=== PATIENT | female | born 1995 | race African-American/Black ===

== ENCOUNTER 2023-10-19 04:28 | Day surgery (SDC) | payer BC ==
[2023-10-17 11:52] VITALS: BMI 20.1
[2023-10-19 08:37] VITALS: RESP 18; TEMP 98
[2023-10-19 09:14] VITALS: BP 111/74; PULSE 66
== END 2023-10-19 09:16 | disposition home or self-care (01) ==
LOC: JASU-ENDO 04:28
PROVIDERS: ATTEND Student in an Organized Health Care Education/Training Program
PROC: 0DB78ZX Excision of Stomach, Pylorus, Via Natural or Artificial Opening Endoscopic, Diagnostic (ICD-10-PCS; 2023-10-19)
PROC: 0DB68ZX Excision of Stomach, Via Natural or Artificial Opening Endoscopic, Diagnostic (ICD-10-PCS; 2023-10-19)
PROC: 0DB28ZX Excision of Middle Esophagus, Via Natural or Artificial Opening Endoscopic, Diagnostic (ICD-10-PCS; 2023-10-19)
PROC: 0DB38ZX Excision of Lower Esophagus, Via Natural or Artificial Opening Endoscopic, Diagnostic (ICD-10-PCS; principal; 2023-10-19 08:00)
DX: K29.50 Unspecified chronic gastritis without bleeding (principal); K25.9 Gastric ulcer, unspecified as acute or chronic, without hemorrhage or perforation
CPT/HCPCS: 81025; 88305-TC; 88342-TC